=== PATIENT | female | born 1980 | race Caucasian/White ===

== ENCOUNTER 2017-11-24 21:24 | Emergency (ER) | payer MEDICAID ==
[~2017-11-24] VITALS: Ht 172.7 cm; Wt 55.0 kg
[~2017-11-24 21:24] MED LIST: IBUP-1984 PO
[2017-11-24] MEDS ORDERED: normal saline 1000ML IV soln IVB ONE (22:10)
[2017-11-24] MEDS ORDERED: diphenhydrAMINE 50 mg/ml inj IV ONE (22:10)
[2017-11-24] MEDS ORDERED: metoclopramide 5 mg/ml inj IV ONE (22:10)
[2017-11-24] MEDS ORDERED: LORazepam 2 mg/ml vial IV ONE (22:10)
[2017-11-24] MEDS ORDERED: ketorolac trometh. 30mg/ml inj. IV ONE (23:00)
[2017-11-24] MEDS ORDERED: dexamethasone sod phosphate 10mg/ml inj IV STA (23:00)
[2017-11-24 23:29] VITALS: BP 115/59
== END 2017-11-24 23:42 | disposition home or self-care (01) ==
LOC: ER 21:24
DX: G43.909 Migraine, unspecified, not intractable, without status migrainosus (principal); G89.29 Other chronic pain; Z88.5 Allergy status to narcotic agent
CPT/HCPCS: 70450; 96374; 96375; 99284; J1100; J1200; J1885; J2060; J2765

== ENCOUNTER 2021-12-18 00:53 | Emergency (ER) | payer BC, MEDICAID ==
[~2021-12-18] VITALS: Ht 172.7 cm; Wt 57.3 kg
[2021-12-18 01:42] LABS: URINE HCG NEGATIVE (NEG)
[2021-12-18 01:48] LABS: CLARITY,URINE CLEAR (Clear); COLOR,URINE YELLOW (Yellow); GLUCOSE, URINE NEGATIVE (Neg); KETONES,URINE TRACE mg/dl (Neg); LEUKOCYTE ESTERASE ,URINE NEGATIVE (Neg); NITRITES, URINE NEGATIVE (Neg); OCCULT BLOOD,URINE MODERATE (Neg); PH,URINE 6.5 (4.8-8.0); PROTEIN,URINE NEGATIVE (Neg)
[2021-12-18 01:58] LABS: UA COLLECTION TYPE VOIDED
[2021-12-18 02:10] LABS: BACTERIA,URINE 2+ /HPF (Neg); MUCUS STRANDS FEW /LPF (Neg); SQUAMOUS EPITHELIAL CELL,UR FEW /LPF (FEW)
[2021-12-18 02:11] LABS: TRANSITIONAL EPI CELLS,URINE FEW /HPF
[2021-12-18 02:53] LABS: BASOPHILS % (AUTO) 0.7 % (0-1); EOSINOPHILS # (AUTO) 0.2 X10'3 (0-0.9); EOSINOPHILS % (AUTO) 3.5 % (0-6); HEMATOCRIT 33.5 % (35.0-45.0); HEMOGLOBIN 11.1 g/dl (12.0-16.0); LYMPHOCYTES # (AUTO) 1.5 X10'3 (1.1-4.8); LYMPHOCYTES % (AUTO) 24.7 % (21-51); MEAN CORPUSCULAR HEMOGLOBIN 28.8 PG (27.0-31.0); MEAN PLATELET VOLUME 7.5 FL (7.4-10.4); MONOCYTES # (AUTO) 0.5 X10'3 (0-0.9); MONOCYTES % (AUTO) 8.3 % (2-12); NEUTROPHILS # (AUTO) 3.7 X10'3 (1.8-7.7); NEUTROPHILS % (AUTO) 62.8 % (42-75); PLATELET COUNT 198 X10'3 (140-440); RED BLOOD COUNT 3.85 X10'6 (4.20-5.60); RED CELL DISTRIBUTION WIDTH 13.7 % (11.5-14.5); WHITE BLOOD COUNT 5.9 X10'3 (4.5-11.0)
[2021-12-18 03:01] LABS: ALANINE AMINOTRANSFERASE 17 U/L (12-78); ALBUMIN 3.5 G/DL (3.4-5.0); ALKALINE PHOSPHATASE 78 IU/L (46-116); ANION GAP 7 (8-16); ASPARTATE AMINO TRANSFERASE 21 U/L (10-37); BILIRUBIN,TOTAL 0.4 MG/DL (0.1-1.0); BLOOD UREA NITROGEN 14 MG/DL (7-18); BUN/CREATININE RATIO 20.6 (6.6-38.0); CALCIUM 8.5 MG/DL (8.5-10.1); CHLORIDE 107 MMOL/L (99-107); CREATININE 0.68 MG/DL (0.40-0.90); GLUCOSE 126 MG/DL (70-104); SODIUM 140 MMOL/L (135-145); TOTAL CARBON DIOXIDE 26.5 MMOL/L (24-32); TOTAL PROTEIN 6.9 G/DL (6.4-8.2); eGFR > 90 ML/MIN
[2021-12-18] MEDS ORDERED: ONDA8TAB13 PO (05:06)
[2021-12-18] MEDS ORDERED: CIPR-202 PO (05:06)
[2021-12-18 05:30] VITALS: BP 101/55
== END 2021-12-18 05:34 | disposition home or self-care (01) ==
LOC: ER 00:54
DX: N20.0 Calculus of kidney (principal); G89.29 Other chronic pain; Z88.5 Allergy status to narcotic agent; Z79.899 Other long term (current) drug therapy
CPT/HCPCS: 36415; 74176; 80053; 81001; 81025; 85025; 87088; 99285

== ENCOUNTER 2023-08-04 20:41 | Emergency (ER) | payer BC, MEDICAID ==
[~2023-08-04] VITALS: Ht 172.7 cm; Wt 59.0 kg
[~2023-08-04 20:41] MED LIST changes: +ONDA8TAB13 PO
[2023-08-04] MEDS ORDERED: NAPR-56 PO (21:58)
[2023-08-04] MEDS ORDERED: DOXY-1 PO (21:58)
[2023-08-04] MEDS: ketorolac trometh. 30mg/ml inj. IM ONE (22:12)
[2023-08-04 22:16] VITALS: BP 121/74; PULSE 86; RESP 14; TEMP 98.2; O2SAT 99
== END 2023-08-04 22:18 | disposition home or self-care (01) ==
LOC: ER 20:41
DX: K04.7 Periapical abscess without sinus (principal); G89.29 Other chronic pain; Z88.5 Allergy status to narcotic agent; Z79.1 Long term (current) use of non-steroidal anti-inflammatories (NSAID); Z79.899 Other long term (current) drug therapy
CPT/HCPCS: 96372; 99283; J1885

== ENCOUNTER 2023-08-10 23:35 | Emergency (ER) | payer BC ==
[~2023-08-10] VITALS: Ht 172.7 cm; Wt 59.1 kg
[~2023-08-10 23:35] MED LIST changes: +DOXY-1 PO; +NAPR-56 PO
[2023-08-11] MEDS: acetaminophen 325mg tablet PO ONE (00:42)
[2023-08-11] MEDS: ibuprofen tablet 400 MG TABLET PO ONE (00:42)
[2023-08-11] MEDS: ondansetron 4mg rapidly disintigrating tab PO ONE (00:43)
[2023-08-11] MEDS: HYDROcodone/acetaminophen 5mg/325mg tablet PO ONE (00:43)
[2023-08-11] MEDS: triamcinolone acetonide 40mg/ml inj IM ONE (00:55)
[2023-08-11 01:13] LABS: D-DIMER 5.25 MG/L FEU (0-0.50)
[2023-08-11] MEDS ORDERED: HYDR-3965 PO (03:02)
[2023-08-11 03:07] VITALS: BP 105/63; PULSE 70; RESP 14; TEMP 97.9; O2SAT 97
== END 2023-08-11 03:17 | disposition home or self-care (01) ==
LOC: ER 23:35
DX: R51.9 Headache, unspecified (principal); R22.41 Localized swelling, mass and lump, right lower limb; G89.29 Other chronic pain; Z79.899 Other long term (current) drug therapy; Z79.2 Long term (current) use of antibiotics; Z88.8 Allergy status to other drugs, medicaments and biological substances
CPT/HCPCS: 36415; 85379; 93971; 96372; 99285; J3301